=== PATIENT | female | born 1990 | race Caucasian/White ===

== ENCOUNTER 2021-08-07 20:05 | Emergency (ER) | payer OTHER ==
[2021-08-07] MEDS ORDERED: Sodium Chloride 0.9% 10 ML Syringe FLUSH PRN (21:12)
[2021-08-07] MEDS ORDERED: Sodium Chloride 0.9% 1,000 ML IV ONE (21:13)
[2021-08-07] MEDS ORDERED: Ondansetron 4 MG/2 ML SDV IVPUSH ONE (21:13)
[2021-08-07] MEDS ORDERED: Loperamide 2 MG Cap PO ONE (21:13)
--- NOTE | 2021-08-07 21:41 | EDM.PDOC ---
ED HPI GENERAL MEDICAL PROBLEM - General Chief Complaint: Abdominal Pain Stated Complaint: VOMITING\\DIZZY Time Seen by Provider: 08/07/21 21:13 Source of Information: Reports: Patient, RN Notes Reviewed History Limitations: Reports: No Limitations - History of Present Illness INITIAL COMMENTS - FREE TEXT/NARRATIVE: Patient is a 31-year-old female who presents to the ER for evaluation of her headache, vomiting/dizziness/syncopal episode. Patient states that around 6:30 PM tonight, she developed vomiting, so much that she was only producing bile at the end of the vomiting. Having some mild diarrhea with this. Patient did not eat any sort of food prior to this that should have caused any GI disturbance that she is aware of. Patient is concerned because she did have a syncopal episode, her states that she was out for about 5 to 10 seconds, and then asked "where my one of my doing what is going on. But she did wake up and was aware of her surroundings. Not noted to have any sort of seizure-like activity. Not had any sort issues like this in the past. Vitals are stable at the time of triage. Was made aware that the patient's was positive for COVID-19, last week. Patient states that she was sick last week, was getting a little bit better, but then again today it worsened. Had a mild fever, headache, nausea/vomiting and some diarrhea. Abdominal Pain Score (Numeric/FACES): 5 - Related Data Allergies Allergy/AdvReac Type Severity Reaction Status Date / Time No Known Allergies Allergy Verified 08/07/21 21:07 Home Meds: Home Meds . [No Known Home Meds] 08/07/21 [History] Past Medical History - Past Health History Medical/Surgical History: Denies Medical/Surgical History Social & Family History - Tobacco Use Tobacco Use Status *Q: Never Tobacco User Second Hand Smoke Exposure: No - Caffeine Use Caffeine Use: Reports: Soda - Recreational Drug Use Recreational Drug Use: No ED ROS GENERAL - Review of Systems Review Of Systems: Comprehensive ROS is negative, except as noted in HPI. ED EXAM, GI/ABD - Physical Exam Exam: See Below Exam Limited By: No Limitations General Appearance: Alert, WD/WN, No Apparent Distress Respiratory/Chest: No Respiratory Distress, Lungs Clear, Normal Breath Sounds, No Accessory Muscle Use, Chest Non-Tender Cardiovascular: Normal Peripheral Pulses, Regular Rate, Rhythm, No Edema GI/Abdominal Exam: Normal Bowel Sounds, Soft, Non-Tender, No Distention, No Mass Extremities: Normal Inspection, Normal Capillary Refill Neurological: Alert, Oriented, Normal Cognition, No Motor/Sensory Deficits Psychiatric: Normal Affect, Normal Mood Skin Exam: Warm, Dry, Intact, Normal Color, No Rash Course - Vital Signs Last Recorded V/S: Last Vital Signs Temp 98.8 F 08/07/21 21:05 Pulse 69 08/07/21 21:05 Resp 18 08/07/21 21:05 BP 146/95 H 08/07/21 21:05 Pulse Ox 100 08/07/21 21:05 - Orders/Labs/Meds Orders: Active Orders 24 hr Category Date Time Status Peripheral IV Care [RC] . DIRECTED Care 08/07/21 21:13 Ordered C-REACTIVE PROTEIN [CHEM] Stat Lab 08/07/21 21:12 Ordered CBC WITH AUTO DIFF [HEME] Stat Lab 08/07/21 21:12 Ordered COMPREHENSIVE METABOLIC PN,CMP [CHEM] Stat Lab 08/07/21 21:12 Ordered MAGNESIUM [CHEM] Stat Lab 08/07/21 21:12 Ordered Sodium Chloride 0.9% [Saline Flush] Med 08/07/21 21:12 Active 10 ml FLUSH ASDIRECTED PRN Peripheral IV Insertion Adult [OM.PC] Routine Oth 08/07/21 21:12 Ordered Medication Orders Sodium Chloride (Sodium Chloride 0.9% 10 Ml Syringe) 10 ml FLUSH ASDIRECTED PRN PRN Reason: Keep Vein Open Last Admin: 08/07/21 21:48 Dose: 10 ml Documented by: ZEINAB Labs: Laboratory Tests 08/07/21 08/07/21 Range/Units 21:10 22:40 WBC 8.62 (3.98-10.04) K/mm3 RBC 4.77 (3.98-5.22) M/mm3 Hgb 14.4 (11.2-15.7) gm/dl Hct 43.9 (34.1-44.9) % MCV 92.0 (79.4-94.8) fl MCH 30.2 (25.6-32.2) pg MCHC 32.8 (32.2-35.5) g/dl RDW Std Deviation 41.8 (36.4-46.3) fL Plt Count 333 (182-369) K/mm3 MPV 9.6 (9.4-12.3) fl Neut % (Auto) 81.1 H (34.0-71.1) % Lymph % (Auto) 15.1 L (19.3-51.7) % [place] % (Auto) 3.1 L (4.7-12.5) % Eos % (Auto) 0.2 L (0.7-5.8) Baso % (Auto) 0.3 (0.1-1.2) % Neut # (Auto) 6.98 H (1.56-6.13) K/mm3 Lymph # (Auto) 1.30 (1.18-3.74) K/mm3 [place] # (Auto) 0.27 (0.24-0.36) K/mm3 Eos # (Auto) 0.02 L (0.04-0.36) K/mm3 Baso # (Auto) 0.03 (0.01-0.08) K/mm3 Influenza Type A RNA Negative (NEGATIVE) Influenza Type B RNA Negative (NEGATIVE) SARS-CoV-2 RNA (MIREYA) Negative (NEGATIVE) Meds: Medications Generic Name Dose Route Start Last Admin Trade Name Freq PRN Reason Stop Dose Admin Sodium Chloride 10 ml 08/07/21 21:12 08/07/21 21:48 Sodium Chloride 0.9% 10 Ml Syringe FLUSH 10 ml ASDIRECTED PRN Administration Keep Vein Open Discontinued Medications Generic Name Dose Route Start Last Admin Trade Name Freq PRN Reason Stop Dose Admin Sodium Chloride 1,000 mls @ 999 mls/hr 08/07/21 21:13 Normal Saline IV 08/07/21 22:13 ONETIME ONE Loperamide HCl 4 mg 08/07/21 21:13 08/07/21 22:00 Loperamide 2 Mg Cap PO 08/07/21 21:14 4 mg ONETIME ONE Administration Ondansetron HCl 4 mg 08/07/21 21:13 08/07/21 22:00 Ondansetron 4 Mg/2 Ml Sdv IVPUSH 08/07/21 21:14 4 mg ONETIME ONE Administration - Re-Assessments/Exams Free Text/Narrative Re-Assessment/Exam: 08/07/21 21:36 Patient presents to the ER for her nausea and vomiting, another illness symptoms. Covid swab will be obtained at the time of triage for both of we will go ahead and give her some IV fluids, some nausea meds. Likely the patient had a syncopal episode due to the amount of nausea and vomiting she had causing a vasovagal syncope. 08/07/21 22:57 Patient was a very hard IV stick, and after multiple attempts IV access was unsuccessful. Patient refused any more IV attempts. Zofran was given IM. I will give the patient some oral fluids to see if she can tolerate this. Labs were obtained, CBC is unremarkable. Still awaiting metabolic panel for management. Likely will send the patient home with Zofran tablets and stick to clear liquid diet over the next 24 to 48 hours. Departure - Departure Time of Disposition: 22:58 Disposition: Home, Self-Care 01 Condition: Good Clinical Impression: Gastroenteritis - Discharge Information *PRESCRIPTION DRUG MONITORING PROGRAM REVIEWED*: No *COPY OF PRESCRIPTION DRUG MONITORING REPORT IN PATIENT LUDMILA: No Instructions: Viral Gastroenteritis, Adult, [id number] Referrals: PCP,None [Primary Care Provider] - Forms: ED Department Discharge Additional Instructions: You have been evaluated in the ED for nausea/vomiting/diarrhea. It is likely that this is caused from a viral gastroenteritis. Your syncopal episode could likely have been from phrenic nerve stimulation causing a vasovagal syncope secondary to your nausea and vomiting. You have received IN medication in the ED to help with the nausea, you were able to tolerate oral fluids before leaving the ER. Over the next 24-48 hours please try to limit diet to clear liquids and advance as tolerated to a bland diet to alleviate symptoms of nausea/vomiting/diarrhea. Would recommend that you drink full sugar type fluids. Please use the Zofran every 8 hours as needed for nausea. This was provided to you through the [employer] machine. Please return to the ED if your symptoms should change or worsen. Sepsis Event Note (ED) - Focused Exam Vital Signs: Vital Signs Temp Pulse Resp BP Pulse Ox 08/07/21 21:05 98.8 F 69 18 146/95 H 100 - My Orders Last 24 Hours: My Active Orders 08/07/21 21:12 C-REACTIVE PROTEIN [CHEM] Stat CBC WITH AUTO DIFF [HEME] Stat COMPREHENSIVE METABOLIC PN,CMP [CHEM] Stat MAGNESIUM [CHEM] Stat Sodium Chloride 0.9% [Saline Flush] 10 ml FLUSH ASDIRECTED PRN Peripheral IV Insertion Adult [OM.PC] Routine 08/07/21 21:13 Peripheral IV Care [RC] . DIRECTED - Assessment/Plan Last 24 Hours: My Active Orders 08/07/21 21:12 C-REACTIVE PROTEIN [CHEM] Stat CBC WITH AUTO DIFF [HEME] Stat COMPREHENSIVE METABOLIC PN,CMP [CHEM] Stat MAGNESIUM [CHEM] Stat Sodium Chloride 0.9% [Saline Flush] 10 ml FLUSH ASDIRECTED PRN Peripheral IV Insertion Adult [OM.PC] Routine 08/07/21 21:13 Peripheral IV Care [RC] . DIRECTED
[2021-08-07 21:55] LABS: CORONAVIRUS COVID-19 NAA NEGATIVE (NEGATIVE)
== END 2021-08-07 23:35 | disposition home or self-care (01) ==
LOC: JD.ED 20:05
DX: K52.9 Noninfective gastroenteritis and colitis, unspecified (principal); R11.2 Nausea with vomiting, unspecified; Z20.822 Contact with and (suspected) exposure to COVID-19
CPT/HCPCS: 0240U; 36415; 80053; 83735; 85025; 86140; 96372; 99284; A9270; J2405